=== PATIENT | male | born 1945 | race Caucasian/White ===

== ENCOUNTER 2019-02-13 18:25 | Emergency (ER) | payer MEDICARE, OTHER ==
[2019-02-13] MEDS ORDERED: NS 0.9% 1000 ML** 1,000 ML IV ONE (19:39)
--- NOTE | 2019-02-13 19:46 | ED ---
Palpitations / Dysrhythmia - HPI Summary HPI Summary: Patient is a 73 y/o M w/ Hx of SVT who presents to ED with complaints of palpitations. He states that he took a long car ride from [employer] to [place] today. Afterwards, patient was walking up and down stairs unloading heavy luggage. He states that palpations suddenly onset at this time. Palpations are characterized as racing. No other Sx reported, patient denies SOB, diaphoresis and chest pain. EMS was called, patient took a dose of Verapamil, 185 mg. Patient estimates that episode lasted 45 minutes and resolved while he was in the ambulance. He notes that he had an ablation ten years ago and reports that his last episode of SVT was four years ago. Patient notes that he is also on lisinopril and has not taken this medication today yet. 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 on triage, pain is denied, nothing is noted to aggravate/ alleviate Sx. Home medications and allergies are reviewed. - History of Current Complaint Chief Complaint: EDDysrhythmPalp Time Seen by Provider: 02/13/19 19:24 Hx Obtained From: Patient Onset/Duration: Sudden Onset, Lasting Minutes - 45, Resolved Timing: Intermittent Episodes Lasting: - 45 minutes Severity Currently: None Character: Fast - racing Aggravating: Exertion Alleviating: Medication Associated Signs & Symptoms: Negative - Allergy/Home Medications Allergies/Adverse Reactions: Allergies Allergy/AdvReac Type Severity Reaction Status Date / Time No Known Allergies Allergy Verified 02/13/19 18:42 Home Medications: Home Medications Aspirin EC TAB* [Ecotrin EC Low Dose 81 MG*] 81 mg PO DAILY 02/13/19 [History Confirmed 02/13/19] Cholecalciferol TAB* [Vitamin D TAB*] 1,000 unit PO DAILY 02/13/19 [History Confirmed 02/13/19] Levothyroxine TAB* [Synthroid TAB*] 150 mcg PO DAILY 02/13/19 [History Confirmed 02/13/19] Lisinopril TAB* [Prinivil TAB*] 10 mg PO DAILY 02/13/19 [History Confirmed 02/13] Multivitamins/Minerals TAB* [Theragran/minerals TAB*] 1 tab PO DAILY 02/13/19 [ History Confirmed 02/13/19] Rosuvastatin (NF) [Crestor (NF)] 10 mg PO DAILY 02/13/19 [History Confirmed 02/24] Verapamil SR CAP* [Calan Sr CAP*] 180 mg PO DAILY 02/13/19 [History Confirmed ] Vitb6/Mag Cit,Ox/Potassium Cit [Theralith Xr] 2 tab PO BID 02/13/19 [History Confirmed 02/13/19] PMH/Surg Hx/FS Hx/Imm Hx Cardiovascular History: Reports: Hx Hypertension, Hx Supraventricular Ventricular Tachycardia, Other Cardiovascular Problems/Disorders - micro-valve prolapse Sensory History: Denies: Hx Legally Blind Opthamlomology History: Denies: Hx Legally Blind - Surgical History Surgery Procedure, Year, and Place: ablation, 2008 Infectious Disease History: No Infectious Disease History: Denies: Traveled Outside the [place] in Last 30 Days - Family History Known Family History: Negative: Diabetes - Social History Alcohol Use: None Substance Use Type: Reports: None Smoking Status (MU): Never Smoked Tobacco Review of Systems Negative: Fever - on vitals, temp of 98.6 F noted, Skin Diaphoresis Positive: Palpitations. Negative: Chest Pain Negative: Shortness Of Breath All Other Systems Reviewed And Are Negative: Yes Physical Exam - Summary Physical Exam Summary: VITAL SIGNS: Reviewed. GENERAL: Patient is a well-developed and nourished male who is lying comfortable in the stretcher. Patient is not in any acute respiratory distress. HEAD AND FACE: No signs of trauma. No ecchymosis, hematomas or skull depressions. No sinus tenderness. EYES: PERRLA, EOMI x 2, No injected conjunctiva, no nystagmus. EARS: Hearing grossly intact. Ear canals and tympanic membranes are within normal limits. MOUTH: Oropharynx within normal limits. NECK: Supple, trachea is midline, no adenopathy, no JVD, no carotid bruit, no c- spine tenderness, neck with full ROM CHEST: Symmetric, no tenderness at palpation LUNGS: Clear to auscultation bilaterally. No wheezing or crackles. CVS: Regular rate and rhythm, S1 and S2 present, no murmurs or gallops appreciated. ABDOMEN: Soft, non-tender. No signs of distention. No rebound no guarding, and no masses palpated. Bowel sounds are normal. EXTREMITIES: FROM in all major joints, no edema, no cyanosis or clubbing. NEURO: Alert and oriented x 3. No acute neurological deficits. Speech is normal and follows commands. SKIN: Dry and warm Triage Information Reviewed: Yes Vital Signs On Initial Exam: Initial Vitals Pulse Resp Pulse Ox 93 17 98 02/13/19 18:36 02/13/19 18:36 02/13/19 18:36 Vital Signs Reviewed: Yes Diagnostics - Vital Signs Vital Signs Temp Pulse Resp BP Pulse Ox 02/13/19 19:07 82 22 117/75 97 02/13/19 19:00 80 22 98 02/13/19 18:37 98.6 F 98 17 139/81 99 02/13/19 18:36 93 17 98 - Laboratory Result Diagrams: 02/13/19 20:34 02/13/19 20:34 Lab Statement: Any lab studies that have been ordered have been reviewed, and results considered in the medical decision making process. - EKG 1950 Cardiac Rate: NL - NSR with rate of 76 BPM EKG Rhythm: Sinus Rhythm Summary of EKG Findings: EKG showed NSR with rate of 76 BPM, normal axis, normal intervals, no ischemic changes. Re-Evaluation - Re-Evaluation First Eval Re-Evaluation Time: 21:02 Comment: Charge nurse Maki reported trop of 0.09. Second Eval Re-Evaluation Time: 21:03 Comment: Patient troponin is mildly elevated at 0.09. He did not have any chest pain whatsoever, before, after, or during episode. Trop elevation is likely secondary to tachycardia/SVT for 45 minutes. He is anxious to go home, does not want to stay for second trop. When the patient had tachycardia, no CP, SOB, and diaphoresis was experienced. Patient will be discharged with instructions to follow up with his manager property. Course/Dx - Course Course Of Treatment: Patient is a 73 y/o M w/ Hx of SVT who presents to ED with complaints of palpitations. He states that he took a long car ride from [employer] to [place] today. Afterwards, patient was walking up and down stairs unloading heavy luggage. He states that palpations suddenly onset at this time. Palpations are characterized as racing. No other Sx reported. EMS was called, patient took a dose of Verapamil, 185 mg. Patient estimates that episode lasted 45 minutes and resolved while he was in the ambulance. He notes that he had an ablation ten years ago and reports that his last episode of SVT was four years ago. Physical exam is unremarkable. EKG showed NSR with rate of 76 BPM, normal axis, normal intervals, no ischemic changes. Labs showed Hgb 13.2, Hct 40, MPV 6.8, BUN 26, BUN/creatinine ratio 22.8, glucose 120. Patient was given fluids. Patient troponin is mildly elevated at 0.09. He did not have any chest pain whatsoever, before, after, or during episode. Trop elevation is likely secondary to tachycardia/SVT for 45 minutes. He is anxious to go home, does not want to stay for second trop. When the patient had tachycardia, no CP, SOB, and diaphoresis was experienced. Patient will be discharged with instructions to follow up with his manager property. - Diagnoses Provider Diagnoses: SVT (supraventricular tachycardia) Discharge - Sign-Out/Discharge Documenting (check all that apply): Patient Departure - discharge Patient Received Moderate/Deep Sedation with Procedure: No - Discharge Plan Condition: Stable Disposition: HOME Patient Education Materials: Supraventricular Tachycardia (ED) Referrals: [facility] [Outside] - 3 Days Additional Instructions: PLEASE RETURN TO ED FOR ANY NEW OR WORSENING SYMPTOMS. FOLLOW UP WITH YOUR PRIMARY CARE PHYSICIAN AND YOUR HOUSE STEWARD/STEWARDESS WITHIN THREE DAYS. - Attestation Statements Document Initiated by Lauren: Yes Documenting Scribe: NICKI FINK Provider For Whom Lauren is Documenting (Include Credential): RICHELLE ONEAL MD Scribe Attestation: INICKI, scribed for RICHELLE ONEAL MD on 02/13/19 at 2123. Status of Scribe Document: Ready
[2019-02-13 20:47] LABS: ABS Basophils 0.1 10^3/ul (0-0.2); ABS Eosinophils 0.1 10^3/ul (0-0.6); ABS Lymphocytes 1.8 10^3/ul (1.0-4.8); ABS Monocytes 0.8 10^3/ul (0-0.8); ABS Neutrophils 6.7 10^3/ul (1.5-7.7); Eosinophil % 0.8 %; Hematocrit 40 % (42-52); Hemoglobin 13.2 g/dL (14.0-18.0); Lymphocyte % 18.7 %; Mean Corpuscular HGB Conc 33 g/dL (31-36); Mean Corpuscular Hemoglobin 29 pg (27-31); Mean Corpuscular Volume 86 fL (80-94); Mean Platelet Volume 6.8 fL (7.4-10.4); Nucleated Red Blood Cells % 0.1; Platelet Count 330 10^3/uL (150-450); Red Blood Count 4.63 10^6 /uL (4.18-5.48); Red Cell Distribution Width 15 % (10-15); White Blood Count 9.6 10^3/uL (3.5-10.8)
[2019-02-13 20:55] LABS: Activated Partial Thrombo Time 36.9 seconds (26.0-38.0); INR 1.02 (0.82-1.09)
[2019-02-13 20:58] LABS: ALT 14 U/L (7-52); AST 20 U/L (13-39); Albumin 4.2 g/dL (3.2-5.2); Albumin/Globulin Ratio 1.4 (1-3); Alkaline Phosphatase 94 U/L (34-104); Anion Gap 7 mmol/L (2-11); BUN/Creatinine Ratio 22.8 (8-20); Blood Urea Nitrogen 26 mg/dL (6-24); CO2 Carbon Dioxide 25 mmol/L (22-32); Calcium 9.9 mg/dL (8.6-10.3); Chloride 108 mmol/L (101-111); EGFR African American 76.2 (>60); Glucose 120 mg/dL (70-100); Potassium 4.2 mmol/L (3.5-5.0); Sodium 140 mmol/L (135-145); Total Protein 7.2 g/dL (6.4-8.9)
[2019-02-13 21:02] LABS: Troponin I 0.09 ng/mL (<0.04)
[2019-02-13 21:38] LABS: TSH (Thyroid Stimulating Horm) 1.79 mcIU/mL (0.34-5.60)
[2019-02-13 22:18] VITALS: BP 146/69
== END 2019-02-13 22:16 | disposition home or self-care (01) ==
LOC: ED 18:25
DX: I47.1 Supraventricular tachycardia (principal); Z79.82 Long term (current) use of aspirin; I10 Essential (primary) hypertension; I34.1 Nonrheumatic mitral (valve) prolapse
CPT/HCPCS: 36415; 80053; 83735; 84443; 84484; 85025; 85610; 85730; 93005; 96360; 99282